=== PATIENT | female | born 1990 | race American Indian/Alaskan Native ===

== ENCOUNTER 2018-09-14 21:57 | Outpatient (CLI) | payer OTHER ==
[2018-09-14 22:31] VITALS: BP 106/67
[2018-09-14] MEDS ORDERED: LACTATED RINGERS 500 ML IV ONE (22:33)
[2018-09-14 23:16] LABS: Bilirubin,Urine NEG (Negative); Blood,Urine NEG (Negative); Color,Urine Yellow (Yellow)
[2018-09-14] MEDS ORDERED: TYLENOL PO ONE (23:36)
== END 2018-09-14 23:57 | disposition home or self-care (01) ==
LOC: TRG 21:57
PROVIDERS: ATTEND Obstetrics & Gynecology
DX: O47.03 False labor before 37 completed weeks of gestation, third trimester (principal); Z3A.30 30 weeks gestation of pregnancy
CPT/HCPCS: 59025; 81001